=== PATIENT | female | born 1980 ===

== ENCOUNTER 2016-09-20 20:08 | Emergency (ER) | payer SELFPAY ==
[2016-09-20 20:08] VITALS: BMI 26.6
--- NOTE | 2016-09-20 22:28 | ED PDOC ---
HPI: Female Pain Time Seen by Provider: 09/20/16 22:00 Chief Complaint (Nursing): Female Genitourinary Chief Complaint (Provider): VAGINAL PRUIRITS History Per: Patient (36 Y/O FEMALE HERE WITH COMPLAINT OF VAGINAL PRUIRITIS X 3 DAYS DESPITE USE OF VAGISIL. NO VAGINAL DISCHARGE/DENIES ANY DYSURIA. ) Past Medical History Reviewed: Historical Data, Nursing Documentation, Vital Signs - Medical History PMH: Hypercholesterolemia Denies: Chronic Kidney Disease - Surgical History Surgical History: Cholecystectomy - Family History Family History: States: Unknown Family Hx - Home Medications Home Medications: Ambulatory Orders Medication Instructions Recorded Oxycodone HCl/Acetaminophen 1 tab PO Q4 #10 tab 09/21/15 [Percocet 325 mg-5 mg] Miconazole Nitrate [Monistat 3] 1 each VG DAILY #1 kit 09/20/16 - Allergies Allergies/Adverse Reactions: Allergies Allergy/AdvReac Type Severity Reaction Status Date / Time No Known Allergies Allergy Verified 08/18/14 09:15 Review of Systems ROS Statement: Except As Marked, All Systems Reviewed And Found Negative Physical Exam - Reviewed Nursing Documentation Reviewed: Yes Vital Signs Reviewed: Yes - Physical Exam Appears: Positive for: Well, Non-toxic, No Acute Distress Head Exam: Positive for: ATRAUMATIC, NORMAL INSPECTION, NORMOCEPHALIC Skin: Positive for: Normal Color, Warm, DRY Eye Exam: Positive for: EOMI, Normal appearance, PERRL ENT: Positive for: Normal ENT Inspection Neck: Positive for: Normal, Painless ROM Cardiovascular/Chest: Positive for: Regular Rate, Rhythm Respiratory: Positive for: CNT, Normal Breath Sounds Gastrointestinal/Abdominal: Positive for: Normal Exam, Bowel Sounds, Soft Pelvic Exam: Positive for: External Exam Normal (NO RASH NOTED.), Other (SMALL AMOUNT OF WHITE VAGINAL DISCHARGE NOTED. ) Back: Positive for: Normal Inspection Extremity: Positive for: Normal ROM Neurologic/Psych: Positive for: Alert, Oriented - Laboratory Results Urine POC: Negative - Progress ED Course And Treament: BS: 106 Disposition - Clinical Impression Clinical Impression: Vaginal pruritus - Patient ED Disposition Is Patient to be Admitted: No - Disposition [facility] Disposition: Routine/Home Disposition Time: 22:28 Condition: FAIR Prescriptions: Miconazole Nitrate [Monistat 3] 1 each VG DAILY #1 kit Instructions: Vulvovaginal Candidiasis (ED) Print Language: TURKMEN
[2016-09-20 22:48] VITALS: BP 111/59; PULSE 72; RESP 16; TEMP 98.8; O2SAT 98
== END 2016-09-20 22:48 | disposition home or self-care (01) ==
LOC: H.ER 20:08
DX: M75.50 Bursitis of unspecified shoulder (principal); L29.8 Other pruritus

== ENCOUNTER 2017-02-17 14:17 | Emergency (ER) | payer OTHER ==
[2017-02-17 14:17] VITALS: BMI 26.6
[2017-02-17 14:28] VITALS: BP 98/65; PULSE 86; RESP 19; TEMP 98.4; O2SAT 100
[2017-02-17] MEDS ORDERED: Amoxicillin-Clav 875-125 mg Tab PO STA (15:00)
--- NOTE | 2017-02-17 15:16 | ED PDOC ---
HPI: CCC, URI, Sore Throat Time Seen by Provider: 02/17/17 14:18 Chief Complaint (Nursing): ENT Problem Chief Complaint (Provider): ear pain History Per: Patient History/Exam Limitations: no limitations Onset/Duration Of Symptoms: Days (x3-4) Current Symptoms Are (Timing): Still Present Additional Complaint(s): Feli Vazquez is a 36 year old female who presents to the emergency department with a complaint of left ear pain associated with headache and right sided facial pain/dental pain ongoing for 1 week. Denied fever, chills or swelling to face. PMD: none provided Past Medical History Reviewed: Historical Data, Nursing Documentation, Vital Signs Vital Signs: Last Vital Signs Temp 98.4 F 02/17/17 14:26 Pulse 86 02/17/17 14:26 Resp 19 02/17/17 14:26 BP 98/65 L 02/17/17 14:26 Pulse Ox 100 02/17/17 15:20 - Medical History PMH: Hypercholesterolemia Denies: Chronic Kidney Disease - Surgical History Surgical History: Cholecystectomy - Family History Family History: States: Unknown Family Hx - Social History Current smoker - smoking cessation education provided: No Alcohol: None Drugs: Denies - Home Medications Home Medications: Ambulatory Orders Medication Instructions Recorded Oxycodone HCl/Acetaminophen 1 tab PO Q4 #10 tab 09/21/15 [Percocet 325 mg-5 mg] Miconazole Nitrate [Monistat 3] 1 each VG DAILY #1 kit 09/20/16 Amoxicillin/Clavulanate [Augmentin 1 tab PO BID #14 tab 02/17/17 875 MG-125 MG] Ibuprofen [Motrin] 600 mg PO Q6 #20 tab 02/17/17 - Allergies Allergies/Adverse Reactions: Allergies Allergy/AdvReac Type Severity Reaction Status Date / Time No Known Allergies Allergy Verified 02/17/17 14:58 Review of Systems ROS Statement: Except As Marked, All Systems Reviewed And Found Negative Constitutional: Negative for: Fever, Chills ENT: Positive for: Ear Pain (left), Mouth Pain (right sided) Neurological: Positive for: Headache Physical Exam - Reviewed Nursing Documentation Reviewed: Yes Vital Signs Reviewed: Yes - Physical Exam Appears: Positive for: Well, Non-toxic, No Acute Distress Head Exam: Positive for: ATRAUMATIC, NORMAL INSPECTION, NORMOCEPHALIC Skin: Positive for: Normal Color ENT: Positive for: TM Is/Are (erythematous and bulging on left), Other ( surrounding erythema and edema in gum line of right 3rd molar). Negative for: Normal ENT Inspection Neurologic/Psych: Positive for: Alert, cheese blender II-XII, Oriented - ECG O2 Sat by Pulse Oximetry: 100 (RA) Pulse Ox Interpretation: Normal Medical Decision Making Medical Decision Making: Initial Impression: Left ear pain Initial Plan: * Augmentin 875mg PO * Motrin 600mg PO Scribe Attestation: Documented by Faviola Cain, acting as a scribe for Janet Borden Provider Scribe Attestation: All medical record entries made by the Scribe were at my direction and personally dictated by me. I have reviewed the chart and agree that the record accurately reflects my personal performance of the history, physical exam, medical decision making, and the department course for this patient. I have also personally directed, reviewed, and agree with the discharge instructions and disposition. Disposition - Clinical Impression Clinical Impression: Otitis media, Toothache - Patient ED Disposition Is Patient to be Admitted: No - Disposition Disposition: Routine/Home Disposition Time: 17:13 Condition: STABLE Prescriptions: Amoxicillin/Clavulanate [Augmentin 875 MG-125 MG] 1 tab PO BID #14 tab Ibuprofen [Motrin] 600 mg PO Q6 #20 tab Instructions: Toothache (ED), Otitis Media (ED) Forms: [employer] (Slovenian)
[2017-02-17] MEDS ORDERED: Amoxicillin-Clav 875-125 mg Tab PO ONE (15:41)
== END 2017-02-17 17:01 | disposition home or self-care (01) ==
LOC: H.ER 14:17
DX: H66.92 Otitis media, unspecified, left ear (principal); K08.89 Other specified disorders of teeth and supporting structures

== ENCOUNTER 2017-07-01 18:31 | Emergency (ER) | payer OTHER ==
[2017-07-01 18:31] VITALS: BMI 26.6
[2017-07-01 18:44] VITALS: O2SAT 99
[2017-07-01] MEDS ORDERED: Sodium Chloride 0.9% 1,000 ML IV SCH (19:15)
--- NOTE | 2017-07-01 19:20 | ED PDOC ---
HPI: General Adult Time Seen by Provider: 07/01/17 19:00 Chief Complaint (Nursing): GI Problem Chief Complaint (Provider): Dizziness History Per: Patient History/Exam Limitations: no limitations Onset/Duration Of Symptoms: Hrs Additional Complaint(s): Patient is a 36 y/o female with no significant past medical history presenting to the emergency department for dizziness and vomiting. Reports that she felt a room-spinning sensation and vomited afterwards. Also notes that she felt like she was going to pass out. Reports feeling dizziness in the past but it was never followed by episodes of vomiting or near-syncope. Denies fever, chills, abdominal pain, or other complaints. PCP: Dr. Pallavi Piedra Past Medical History Reviewed: Historical Data, Nursing Documentation, Vital Signs Vital Signs: Last Vital Signs Temp 98.5 F 07/01/17 22:06 Pulse 78 07/01/17 22:06 Resp 20 07/01/17 22:06 BP 118/78 07/01/17 22:06 Pulse Ox 99 07/01/17 22:06 - Medical History PMH: Hypercholesterolemia Denies: Chronic Kidney Disease - Surgical History Surgical History: Cholecystectomy - Family History Family History: States: Unknown Family Hx - Home Medications Home Medications: Ambulatory Orders Medication Instructions Recorded Oxycodone HCl/Acetaminophen 1 tab PO Q4 #10 tab 09/21/15 [Percocet 325 mg-5 mg] Miconazole Nitrate [Monistat 3] 1 each VG DAILY #1 kit 09/20/16 Amoxicillin/Clavulanate [Augmentin 1 tab PO BID #14 tab 02/17/17 875 MG-125 MG] Ibuprofen [Motrin] 600 mg PO Q6 #20 tab 02/17/17 Meclizine [Antivert] 1 - 2 tab PO Q6 PRN #24 tab 07/01/17 Ondansetron ODT [Zofran ODT] 4 mg PO Q8 PRN #2 odt 07/01/17 - Allergies Allergies/Adverse Reactions: Allergies Allergy/AdvReac Type Severity Reaction Status Date / Time No Known Allergies Allergy Verified 02/17/17 14:58 Review of Systems ROS Statement: Except As Marked, All Systems Reviewed And Found Negative Constitutional: Negative for: Fever, Chills Gastrointestinal: Positive for: Vomiting. Negative for: Abdominal Pain Neurological: Positive for: Dizziness Physical Exam - Reviewed Nursing Documentation Reviewed: Yes Vital Signs Reviewed: Yes - Physical Exam Appears: Positive for: Well, Non-toxic, No Acute Distress Head Exam: Positive for: ATRAUMATIC, NORMAL INSPECTION, NORMOCEPHALIC Skin: Positive for: Normal Color, Warm, Dry Eye Exam: Positive for: Normal appearance Neck: Positive for: Normal, Painless ROM, Supple Cardiovascular/Chest: Positive for: Regular Rate, Rhythm Respiratory: Negative for: Accessory Muscle Use, Respiratory Distress Gastrointestinal/Abdominal: Positive for: Normal Exam, Soft. Negative for: Tenderness Extremity: Positive for: Normal ROM. Negative for: Pedal Edema Neurologic/Psych: Positive for: Alert, Oriented (x3) - Laboratory Results Result Diagrams: 07/01/17 19:48 07/01/17 19:48 Urine POC: Negative - ECG ECG Rhythm: Positive for: Sinus Rhythm (NSR 69 BPM; NO ECTOPY; NO ACUTE CHANGES) O2 Sat by Pulse Oximetry: 99 (RA) Pulse Ox Interpretation: Normal Medical Decision Making Medical Decision Making: Time: 19:09 Initial impression: Dizziness Initial plan: EKG CMP Magnesium Stat ED Urine Dipstick ED Urine CBC Antivert 25 mg PO Reglan 10 mg IVP Normal Saline 1 L IV ~ Scribe Attestation: Documented by Salud Torres, acting as a scribe for REY Vizcarra. Provider Scribe Attestation: All medical record entries made by the Scribe were at my direction and personally dictated by me. I have reviewed the chart and agree that the record accurately reflects my personal performance of the history, physical exam, medical decision making, and the department course for this patient. I have also personally directed, reviewed, and agree with the discharge instructions and disposition. Disposition - Clinical Impression Clinical Impression: Vertigo - Patient ED Disposition Is Patient to be Admitted: No - Disposition Referrals: [facility] [Outside] Disposition: Routine/Home Disposition Time: 22:07 Condition: FAIR Prescriptions: Meclizine [Antivert] 1 - 2 tab PO Q6 PRN #24 tab PRN Reason: Dizziness Ondansetron ODT [Zofran ODT] 4 mg PO Q8 PRN #2 odt PRN Reason: Nausea/Vomiting Instructions: Vertigo (ED) Forms: [employer] (Divehi), [facility] ED School/Work Excuse Print Language: CROATIAN
[2017-07-01 19:55] LABS: BASO % 0.3 % (0.0-2.0); EOS # 0.1 K/uL (0.0-0.7); EOS % 0.6 % (0.0-4.0); LYMPH # 1.1 K/uL (1.0-4.3); LYMPH % 10.9 % (20.0-40.0); MEAN CELL VOLUME 85.3 fl (81.0-99.0); MEAN CORPUSCULAR HEMOGLOBIN 27.9 pg (27.0-31.0); MEAN CORPUSCULAR HGB CONC 32.7 g/dL (33.0-37.0); MEAN PLATELET VOLUME 8.2 fl (7.2-11.7); MONO # 0.5 K/uL (0.0-0.8); MONO % 4.4 % (0.0-10.0); NEUT # 8.8 K/uL (1.8-7.0); NEUT % 83.8 % (50.0-75.0); NRBC % 0.1 % (0.0-0.0); RBC 4.29 Mil/uL (3.80-5.20); RED CELL DISTRIBUTION WIDTH 14.3 % (11.5-14.5); WHITE BLOOD COUNT 10.5 K/uL (4.8-10.8)
[2017-07-01 20:09] LABS: ALB/GLOB RATIO 1.3 (1.0-2.1); ALBUMIN 4.5 g/dL (3.5-5.0); ALT/SGPT 46 U/L (9-52); AST/SGOT 26 U/L (14-36); BLOOD UREA NITROGEN 12 mg/dl (7-17); CALCIUM 9.2 mg/dL (8.4-10.2); GFR AFRICAN-AMERICAN > 60; GFR NON-AFRICAN AMERICAN > 60; MAGNESIUM 2.1 MG/DL (1.6-2.3)
[2017-07-01 22:07] VITALS: BP 118/78; PULSE 78; RESP 20; TEMP 98.5
--- NOTE | 2017-07-02 08:16 | CARD ---
APPROVED REPORT EKG Measurement Heart [id number] <Conclusion> Normal sinus rhythm motion artefact
== END 2017-07-01 22:07 | disposition home or self-care (01) ==
LOC: H.ER 18:31
DX: R42 Dizziness and giddiness (principal); E78.00 Pure hypercholesterolemia, unspecified
CPT/HCPCS: 80053; 81025; 83735; 85025; 93005; 96374; 99281; J2765; J7040

== ENCOUNTER 2017-08-29 19:48 | Emergency (ER) | payer SELFPAY ==
[2017-08-29 19:48] VITALS: BMI 26.6
[2017-08-29 19:55] VITALS: RESP 16; O2SAT 98
--- NOTE | 2017-08-29 20:56 | ED PDOC ---
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) History/Exam Limitations: no limitations Onset/Duration Of Symptoms: Days (x1 week) Outside of [place] travel?: No Current Symptoms Are (Timing): Intermittent Episodes Severity: Mild Pain Scale Rating Of: 4 Location Of Pain/Discomfort: Suprapubic Quality Of Discomfort: Sharp, Pressure Associated Symptoms: denies: Fever, Nausea, Vomiting, Diarrhea, Loss Of Appetite , Urinary Symptoms Exacerbating Factors: None Last Bowel Movement: Today Additional Complaint(s): 37 year old female with a past medical history of cholecystectomy, who presents to the ED complaining of intermittent suprapubic abdominal pain x1 week. Patient denies radiation of abdominal pain and describes pain as sharp and sometimes aching. Patient confirms a history of UTI in the past, but denies any UTI symptoms at this time, including dysuria, urgency, frequency, or hematuria. Denies taking any medication for her symptoms and denies any pattern or relieving factors of her symptoms. Also denies fever, vaginal pain, vaginal itching, vaginal discharge, history of STDs, chest pain, chills, rash, cough, SOB, flank pain, back pain, nausea, vomiting, or diarrhea. LMP 08/26/2017. Patient denies any new sexual partners. PMD: [facility] Past Medical History Reviewed: Historical Data, Nursing Documentation, Vital Signs Vital Signs: Last Vital Signs Temp 97.8 F 08/30/17 00:36 Pulse 82 08/30/17 00:36 Resp 16 08/30/17 00:36 BP 110/68 08/30/17 00:36 Pulse Ox 98 08/30/17 00:36 - Medical History PMH: Hypercholesterolemia Denies: Chronic Kidney Disease Other PMH: UTI - Surgical History Surgical History: Cholecystectomy (5 years ago) - Family History Family History: States: Unknown Family Hx - Social History Current smoker - smoking cessation education provided: No Alcohol: None Drugs: Denies - Home Medications Home Medications: Ambulatory Orders Medication Instructions Recorded Oxycodone HCl/Acetaminophen 1 tab PO Q4 #10 tab 09/21/15 [Percocet 325 mg-5 mg] Miconazole Nitrate [Monistat 3] 1 each VG DAILY #1 kit 09/20/16 Amoxicillin/Clavulanate [Augmentin 1 tab PO BID #14 tab 02/17/17 875 MG-125 MG] Ibuprofen [Motrin] 600 mg PO Q6 #20 tab 02/17/17 Meclizine [Antivert] 1 - 2 tab PO Q6 PRN #24 tab 07/01/17 Ondansetron ODT [Zofran ODT] 4 mg PO Q8 PRN #2 odt 07/01/17 Ibuprofen [Motrin Tab] 600 mg PO Q6 PRN #20 tab 08/29/17 - Allergies Allergies/Adverse Reactions: Allergies Allergy/AdvReac Type Severity Reaction Status Date / Time No Known Allergies Allergy Verified 08/29/17 19:52 Review of Systems ROS Statement: Except As Marked, All Systems Reviewed And Found Negative Constitutional: Negative for: Fever, Chills Cardiovascular: Negative for: Chest Pain Respiratory: Negative for: Cough, Shortness of Breath Gastrointestinal: Positive for: Abdominal Pain. Negative for: Nausea, Vomiting , Diarrhea Genitourinary Female: Negative for: Dysuria, Frequency, Incontinence, Hematuria , Vaginal Discharge, Vaginal Bleeding Skin: Negative for: Rash Physical Exam - Reviewed Nursing Documentation Reviewed: Yes Vital Signs Reviewed: Yes - Physical Exam Appears: Positive for: Well, Non-toxic, No Acute Distress Head Exam: Positive for: ATRAUMATIC, NORMOCEPHALIC Skin: Positive for: Normal Color, Warm, Dry. Negative for: Rash Eye Exam: Positive for: EOMI, PERRL Neck: Positive for: Painless ROM, Supple Cardiovascular/Chest: Positive for: Regular Rate, Rhythm. Negative for: Murmur , Bradycardia, Tachycardia Respiratory: Positive for: Normal Breath Sounds. Negative for: Decreased Breath Sounds, Accessory Muscle Use, Respiratory Distress Gastrointestinal/Abdominal: Positive for: Bowel Sounds (active x4), Soft, Tenderness (mild suprapubic; otherwise RLQ, LLQ, RUQ, LUQ nontender.). Negative for: Organomegaly, Mass, Distended, Guarding, Rebound Back: Positive for: Normal Inspection. Negative for: L CVA Tenderness, R CVA Tenderness, Vertebral Tenderness Extremity: Positive for: Normal ROM. Negative for: Calf Tenderness, Deformity Neurologic/Psych: Positive for: Alert, Oriented (x3), Gait (steady). Negative for: Motor/Sensory Deficits - Laboratory Results Result Diagrams: 08/29/17 21:24 08/29/17 21:24 Urine dip results: Negative for: Leukocyte Esterase, Blood, Nitrate, Ketones, Glucose, Bilirubin, Protein - ECG O2 Sat by Pulse Oximetry: 98 (RA) Pulse Ox Interpretation: Normal Medical Decision Making Medical Decision Making: Time: 20:30 Initial Impression: Suprapubic abdominal pain Initial Plan: --CMP --Urine --CBC w/ differential --Toradol 30 mg IVP --Urine culture --IV Insertion --Urinalysis --Reevaluation 2130 Bloodwork reviewed and grossly normal, patient pending urinalysis results. Beta qual negative. Pain improved s/p Toradol. On exam, patient remains AAOx3, in no acute distress. Lungs clear to auscultation, cardiac RRR, abdomen soft, non- distended, repeat neuro exam shows no focal findings. 2210 Urinalysis reviewed. Due to persistent pain, transvaginal ultrasound ordered. 2300 Patient in U/S. 2340 U/S reviewed and results below. EXAM: US Pelvis, Transvaginal CLINICAL HISTORY: 37 years old, female; Pelvic pain x1week TECHNIQUE: Real-time transvaginal pelvic ultrasound (complete) with image documentation. Transvaginal imaging was used for better evaluation of the endometrium and adnexa. COMPARISON: US - TRANSVAGINAL 2015-06-02 14:32 FINDINGS: Uterus/cervix: Unremarkable measuring 6.6 x 3.7 x 5.6 cm. The endometrial cavity is mildly prominent measuring 9 mm, which should be correlated with this patient's menstrual history. No myometrial mass. Right ovary: Unremarkable measuring 2.3 x 1.4 x 1.5 cm with small follicles. No mass. Normal blood flow. Left ovary: Unremarkable measuring 2.5 x 1.7 x 2.2 cm with small follicles. No mass. Normal blood flow. Free fluid: No free fluid. Bladder: Empty bladder which cannot be evaluated with this probe. IMPRESSION: No evidence of an acute pelvic abnormality. No evidence of ovarian torsion. Thank you for allowing us to participate in the care of your patient. Dictated and Authenticated by: Perri Saucedo MD 08/29/2017 11:41 PM Eastern Time ([place] & [place]) 2350 Diagnostic results d/w the patient in great detail. Diagnosis of acute pelvic d/ w the patient. Based on history, exam and diagnostic results, plan will be for outpatient follow up. 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 Advised to take medication as prescribed. Return to the emergency room at any time for any new or worsening symptoms. Patient states she fully agrees with and understands discharge instructions. States that she agrees with the plan and disposition. Verbalized and repeated discharge instructions and plan. I have given the patient opportunity to ask any additional questions. Scribe Attestation: Documented by Ruperto Rosado, acting as a scribe for Angelia Faye PA-C. Provider Scribe Attestation: All medical record entries made by the Scribe were at my direction and personally dictated by me. I have reviewed the chart and agree that the record accurately reflects my personal performance of the history, physical exam, medical decision making, and the department course for this patient. I have also personally directed, reviewed, and agree with the discharge instructions and disposition. Disposition - Clinical Impression Clinical Impression: Pelvic pain, Suprapubic discomfort - Patient ED Disposition Is Patient to be Admitted: No Counseled Patient/Family Regarding: Studies Performed, Diagnosis, Need For Followup, Rx Given - Disposition Referrals: [facility] [Outside] Disposition: Routine/Home Disposition Time: 23:53 Condition: STABLE Prescriptions: Ibuprofen [Motrin Tab] 600 mg PO Q6 PRN #20 tab PRN Reason: Pain, Moderate (4-7) Instructions: Acute Pelvic Pain Forms: [employer] (Indonesian) Print Language: BELIZEAN - POA Present On Arrival: None Results - Lab Results Lab Results: 08/29/17 08/29/17 08/29/17 21:24 21:24 21:24 WBC 10.4 RBC 4.25 Hgb 12.0 Hct 36.6 MCV 86.2 MCH 28.4 MCHC 32.9 L RDW 14.1 Plt Count 285 MPV 8.1 Neut % (Auto) 65.9 Lymph % (Auto) 25.8 [place] % (Auto) 6.2 Eos % (Auto) 1.7 Baso % (Auto) 0.4 Neut # (Auto) 6.8 Lymph # (Auto) 2.7 [place] # (Auto) 0.6 Eos # (Auto) 0.2 Baso # (Auto) 0.0 Sodium 144 Potassium 4.2 Chloride 99 Carbon Dioxide 29 Anion Gap 20 BUN 18 H Creatinine 0.8 Est GFR ( Amer) > 60 Est GFR (Non-Af Amer) > 60 Random Glucose 109 H Calcium 9.7 Total Bilirubin 0.3 AST 30 ALT 40 Alkaline Phosphatase 86 Total Protein 8.0 Albumin 4.4 Globulin 3.6 Albumin/Globulin Ratio 1.2 Urine Color Yellow Urine Clarity Clear Urine pH 6.0 Ur Specific [place] 1.027 Urine Protein Negative Urine Glucose (UA) Neg Urine Ketones Negative Urine Blood Negative Urine Nitrate Negative Urine Bilirubin Negative Urine Urobilinogen 0.2-1.0 Ur Leukocyte Esterase Neg Urine RBC (Auto) 3 Urine Microscopic WBC 1 Ur Squamous Epith Cells 1
[2017-08-29 21:29] LABS: BASO % 0.4 % (0.0-2.0); EOS # 0.2 K/uL (0.0-0.7); EOS % 1.7 % (0.0-4.0); LYMPH # 2.7 K/uL (1.0-4.3); LYMPH % 25.8 % (20.0-40.0); MEAN CELL VOLUME 86.2 fl (81.0-99.0); MEAN CORPUSCULAR HEMOGLOBIN 28.4 pg (27.0-31.0); MEAN CORPUSCULAR HGB CONC 32.9 g/dL (33.0-37.0); MEAN PLATELET VOLUME 8.1 fl (7.2-11.7); MONO # 0.6 K/uL (0.0-0.8); MONO % 6.2 % (0.0-10.0); NEUT # 6.8 K/uL (1.8-7.0); NEUT % 65.9 % (50.0-75.0); NRBC % 0.1 % (0.0-0.0); RBC 4.25 Mil/uL (3.80-5.20); RED CELL DISTRIBUTION WIDTH 14.1 % (11.5-14.5); WHITE BLOOD COUNT 10.4 K/uL (4.8-10.8)
[2017-08-29 21:39] LABS: ALB/GLOB RATIO 1.2 (1.0-2.1); ALBUMIN 4.4 g/dL (3.5-5.0); ALT/SGPT 40 U/L (9-52); AST/SGOT 30 U/L (14-36); BLOOD UREA NITROGEN 18 mg/dl (7-17); CALCIUM 9.7 mg/dL (8.4-10.2); GFR AFRICAN-AMERICAN > 60; GFR NON-AFRICAN AMERICAN > 60
[2017-08-29 22:09] LABS: SQUAMOUS EPITHIAL 1 /hpf (0-5); URINE BILIRUBIN NEGATIVE (NEGATIVE); URINE BLOOD NEGATIVE (NEGATIVE); URINE CLARITY CLEAR (Clear); URINE COLOR YELLOW (YELLOW); URINE GLUCOSE (UA) NEG (Normal); URINE LEUKOCYTE ESTERASE NEG Leu/uL (Negative); URINE PROTEIN NEGATIVE (NEGATIVE); URINE UROBILINOGEN 0.2-1.0 mg/dL (0.2-1.0)
--- NOTE | 2017-08-29 23:41 | US ---
EXAM: US Pelvis, Transvaginal CLINICAL HISTORY: 37 years old, female; Pain; Pelvic pain; Additional info: Pelvic pain x1week TECHNIQUE: Real-time transvaginal pelvic ultrasound (complete) with image documentation. Transvaginal imaging was used for better evaluation of the endometrium and adnexa. COMPARISON: US - TRANSVAGINAL 2015-06-02 14:32 FINDINGS: Uterus/cervix: Unremarkable measuring 6.6 x 3.7 x 5.6 cm. The endometrial cavity is mildly prominent measuring 9 mm, which should be correlated with this patient's menstrual history. No myometrial mass. Right ovary: Unremarkable measuring 2.3 x 1.4 x 1.5 cm with small follicles. No mass. Normal blood flow. Left ovary: Unremarkable measuring 2.5 x 1.7 x 2.2 cm with small follicles. No mass. Normal blood flow. Free fluid: No free fluid. Bladder: Empty bladder which cannot be evaluated with this probe. IMPRESSION: No evidence of an acute pelvic abnormality. No evidence of ovarian torsion.
[2017-08-30 00:37] VITALS: BP 110/68; PULSE 82; TEMP 97.8
== END 2017-08-30 00:37 | disposition home or self-care (01) ==
LOC: H.ER 19:48
DX: R10.2 Pelvic and perineal pain (principal); E78.00 Pure hypercholesterolemia, unspecified
CPT/HCPCS: 76830; 80053; 81003; 81025; 85025; 87086; 96374; 99283; J1885

== ENCOUNTER 2017-09-22 20:00 | Emergency (ER) | payer OTHER, SELFPAY ==
[2017-09-22 20:00] VITALS: BMI 26.6
[2017-09-22 20:19] VITALS: BP 123/82; PULSE 79; RESP 18; TEMP 97.8; O2SAT 99
--- NOTE | 2017-09-22 20:49 | ED PDOC ---
HPI: Chest Pain Time Seen by Provider: 09/22/17 20:41 Chief Complaint (Nursing): Chest Pain History Per: Patient Onset/Duration Of Symptoms: Days (2) Current Symptoms Are (Timing): Intermittent Episodes Severity: Mild Pain Scale Rating Of: 2 Quality: Sharp Associated Symptoms: denies: Dyspnea Exacerbating Factors: Deep Breathing Additional Complaint(s): Chest pain x 2 days. Worse on inspiration. Denies cough fever or sob. Denies calf pain or swelling Past Medical History Vital Signs: Last Vital Signs Temp 97.8 F 09/22/17 20:14 Pulse 79 09/22/17 20:14 Resp 18 09/22/17 20:14 BP 123/82 09/22/17 20:14 Pulse Ox 99 09/22/17 20:49 - Medical History PMH: Hypercholesterolemia Denies: Chronic Kidney Disease - Surgical History Surgical History: Cholecystectomy (5 years ago) - Family History Family History: States: Unknown Family Hx - Home Medications Home Medications: Ambulatory Orders Medication Instructions Recorded Oxycodone HCl/Acetaminophen 1 tab PO Q4 #10 tab 09/21/15 [Percocet 325 mg-5 mg] Miconazole Nitrate [Monistat 3] 1 each VG DAILY #1 kit 09/20/16 Amoxicillin/Clavulanate [Augmentin 1 tab PO BID #14 tab 02/17/17 875 MG-125 MG] Ibuprofen [Motrin] 600 mg PO Q6 #20 tab 02/17/17 Meclizine [Antivert] 1 - 2 tab PO Q6 PRN #24 tab 07/01/17 Ondansetron ODT [Zofran ODT] 4 mg PO Q8 PRN #2 odt 07/01/17 Ibuprofen [Motrin Tab] 600 mg PO Q6 PRN #20 tab 08/29/17 Naproxen [Naprosyn] 500 mg PO Q12H #20 tab 09/22/17 - Allergies Allergies/Adverse Reactions: Allergies Allergy/AdvReac Type Severity Reaction Status Date / Time No Known Allergies Allergy Verified 09/22/17 20:14 Review of Systems ROS Statement: Except As Marked, All Systems Reviewed And Found Negative Cardiovascular: Positive for: Chest Pain Respiratory: Positive for: Pleuritic Pain Physical Exam - Reviewed Nursing Documentation Reviewed: Yes Vital Signs Reviewed: Yes - Physical Exam Appears: Positive for: Non-toxic, No Acute Distress Head Exam: Positive for: ATRAUMATIC, NORMAL INSPECTION, NORMOCEPHALIC Skin: Positive for: Normal Color, Warm, DRY Eye Exam: Positive for: EOMI, Normal appearance, PERRL ENT: Positive for: Normal ENT Inspection Neck: Positive for: Normal, Painless ROM Cardiovascular/Chest: Positive for: Regular Rate, Rhythm. Negative for: Chest Non Tender (Ant chest wall tenderness reproducible) Respiratory: Positive for: CNT, Normal Breath Sounds Gastrointestinal/Abdominal: Positive for: Normal Exam, Bowel Sounds, Soft Back: Positive for: Normal Inspection Extremity: Positive for: Normal ROM. Negative for: Swelling Neurologic/Psych: Positive for: Alert, Oriented - ECG O2 Sat by Pulse Oximetry: 99 Disposition - Clinical Impression Clinical Impression: Chest wall pain - Patient ED Disposition Is Patient to be Admitted: No Counseled Patient/Family Regarding: Studies Performed, Diagnosis, Need For Followup, Rx Given - Disposition Referrals: [facility] [Outside] Disposition: Routine/Home Disposition Time: 21:19 Condition: FAIR Prescriptions: Naproxen [Naprosyn] 500 mg PO Q12H #20 tab Instructions: Costochondritis Forms: [employer] (Urdu) Print Language: KAZAKH
--- NOTE | 2017-09-23 09:38 | RAD ---
CHEST RADIOGRAPHS Frontal lateral views the chest been submitted for evaluation of chest pain. Comparison a prior chest dated 05/22/2014. No acute infiltrate, pleural effusion or pneumothorax identified bilaterally. Cardiomediastinal silhouette appears unremarkable including pulmonary vascular pattern. IMPRESSION: No interval acute cardiopulmonary disease appreciable.
--- NOTE | 2017-09-24 11:53 | CARD ---
APPROVED REPORT EKG Measurement Heart [id number] <Conclusion> Normal sinus rhythm Normal ECG
== END 2017-09-22 21:40 | disposition home or self-care (01) ==
LOC: H.ER 20:00
DX: R07.89 Other chest pain (principal)

== ENCOUNTER 2017-11-18 20:41 | Emergency (ER) | payer OTHER, SELFPAY ==
[2017-11-18 20:41] VITALS: BMI 26.6
--- NOTE | 2017-11-18 21:15 | ED PDOC ---
HPI: Abdomen Time Seen by Provider: 11/18/17 21:03 Chief Complaint (Nursing): Abdominal Pain Chief Complaint (Provider): : pelvic pain History Per: Patient History/Exam Limitations: no limitations Onset/Duration Of Symptoms: Days (5) Location Of Pain/Discomfort: RLQ, Suprapubic Additional History Per: Patient Additional Complaint(s): 37 y/o female presents with pain to lower abdomen x 5 days. Patient had a + test at home. Denies fever, nausea/vomiting, chest pain, changes in bowel movements, urinary symptoms, vaginal bleeding/discharge. No care thus far. Last Menstral Period: 09/23/17 : 5 Para: 4 Miscarriage: 0 Past Medical History Reviewed: Historical Data, Nursing Documentation, Vital Signs Vital Signs: Last Vital Signs Temp 97.8 F 11/18/17 20:47 Pulse 87 11/18/17 20:47 Resp 18 11/18/17 20:47 BP 126/82 11/18/17 20:47 Pulse Ox 100 11/18/17 21:15 - Medical History PMH: Hypercholesterolemia Denies: Chronic Kidney Disease - Surgical History Surgical History: Cholecystectomy (5 years ago) - Family History Family History: States: Unknown Family Hx - Home Medications Home Medications: Ambulatory Orders Medication Instructions Recorded Oxycodone HCl/Acetaminophen 1 tab PO Q4 #10 tab 09/21/15 [Percocet 325 mg-5 mg] Miconazole Nitrate [Monistat 3] 1 each VG DAILY #1 kit 09/20/16 Amoxicillin/Clavulanate [Augmentin 1 tab PO BID #14 tab 02/17/17 875 MG-125 MG] Ibuprofen [Motrin] 600 mg PO Q6 #20 tab 02/17/17 Meclizine [Antivert] 1 - 2 tab PO Q6 PRN #24 tab 07/01/17 Ondansetron ODT [Zofran ODT] 4 mg PO Q8 PRN #2 odt 07/01/17 Ibuprofen [Motrin Tab] 600 mg PO Q6 PRN #20 tab 08/29/17 Naproxen [Naprosyn] 500 mg PO Q12H #20 tab 09/22/17 - Allergies Allergies/Adverse Reactions: Allergies Allergy/AdvReac Type Severity Reaction Status Date / Time No Known Allergies Allergy Verified 09/22/17 20:14 Review of Systems ROS Statement: Except As Marked, All Systems Reviewed And Found Negative Genitourinary Female: Positive for: Pelvic Pain Physical Exam - Reviewed Nursing Documentation Reviewed: Yes Vital Signs Reviewed: Yes - Physical Exam Appears: Positive for: Well, Non-toxic, No Acute Distress Head Exam: Positive for: ATRAUMATIC, NORMAL INSPECTION, NORMOCEPHALIC Skin: Positive for: Normal Color Eye Exam: Positive for: Normal appearance ENT: Positive for: Normal ENT Inspection Cardiovascular/Chest: Positive for: Regular Rate, Rhythm Respiratory: Positive for: Normal Breath Sounds Gastrointestinal/Abdominal: Positive for: Bowel Sounds, Soft, Tenderness ( diffuse lower discomfort to palpation). Negative for: Distended, Rebound Back: Positive for: Normal Inspection Extremity: Positive for: Normal ROM Neurologic/Psych: Positive for: Alert, Oriented - Laboratory Results Result Diagrams: 11/18/17 21:44 11/18/17 21:44 - ECG O2 Sat by Pulse Oximetry: 100 - Progress ED Course And Treament: labs, urine, OB TV u/s EXAM: US , Transvaginal EXAM DATE/TIME: 11/18/2017 9:13 PM CLINICAL HISTORY: 37 years old, female; Pain; Other: Pelvic pain; Gestational age or lmp: Unknown ; ; Additional info: ; Pelvic pain TECHNIQUE: Real-time transvaginal obstetrical ultrasound of the maternal pelvis and a first trimester with image documentation. Transvaginal imaging was used for better evaluation of the fetus and adnexa. COMPARISON: US - TRANSVAGINAL 2015-06-02 14:32 FINDINGS: The uterus measures 8 x 5 x 7 cm. The cervix measures 3.4 cm. There is an intrauterine gestational sac containing a yolk sac. No pole or heart rate identified at this time. Gestational sac measurements correspond to a gestational age of 5 weeks 0 days. There is a small 1.9 x 0.7 x 1.3 cm hypoechoic structure adjacent to the gestational sac likely representing a subchorionic bleed. Followup is recommended. The maternal ovaries appear normal.Color flow and doppler vascular waveforms were demonstrated to both ovaries. IMPRESSION: Intrauterine gestational sac containing yolk sac however no pole or heart rate at this time. Recommend followup beta-hCG levels and followup ultrasound. Subchorionic bleed. Patient educated on findings, discharged with instructions to follow up with Ob/ Hydrology Professor 2-3 days. Advised vitamins Return precautions given Disposition - Clinical Impression Clinical Impression: Abdominal pain affecting , Subchorionic bleed - Patient ED Disposition Is Patient to be Admitted: No Counseled Patient/Family Regarding: Studies Performed, Diagnosis, Need For Followup - Disposition Referrals: [facility] [Outside] Disposition: Routine/Home Disposition Time: : Condition: IMPROVED Instructions: Threatened Miscarriage, Round Ligament Pain Print Language: BENINESE
[2017-11-18 21:47] LABS: BASO % 0.2 % (0.0-2.0); EOS # 0.1 K/uL (0.0-0.7); HEMOGLOBIN 11.9 g/dL (12.0-16.0); LYMPH # 1.5 K/uL (1.0-4.3); LYMPH % 15.2 % (20.0-40.0); MEAN CELL VOLUME 85.7 fl (81.0-99.0); MEAN CORPUSCULAR HEMOGLOBIN 28.5 pg (27.0-31.0); MEAN CORPUSCULAR HGB CONC 33.3 g/dL (33.0-37.0); MEAN PLATELET VOLUME 7.9 fl (7.2-11.7); MONO # 0.6 K/uL (0.0-0.8); MONO % 6.6 % (0.0-10.0); NEUT # 7.4 K/uL (1.8-7.0); RBC 4.18 Mil/uL (3.80-5.20); RED CELL DISTRIBUTION WIDTH 14.3 % (11.5-14.5); WHITE BLOOD COUNT 9.6 K/uL (4.8-10.8)
[2017-11-18 22:04] LABS: ALB/GLOB RATIO 1.2 (1.0-2.1); ALBUMIN 4.3 g/dL (3.5-5.0); ALT/SGPT 43 U/L (9-52); AST/SGOT 23 U/L (14-36); BLOOD UREA NITROGEN 14 mg/dl (7-17); CALCIUM 9.6 mg/dL (8.4-10.2); GFR AFRICAN-AMERICAN > 60; GFR NON-AFRICAN AMERICAN > 60
--- NOTE | 2017-11-19 01:23 | US ---
EXAM: US , Transvaginal EXAM DATE/TIME: 11/18/2017 9:13 PM CLINICAL HISTORY: 37 years old, female; Pain; Other: Pelvic pain; Gestational age or lmp: Unknown; ; Additional info: ; Pelvic pain TECHNIQUE: Real-time transvaginal obstetrical ultrasound of the maternal pelvis and a first trimester with image documentation. Transvaginal imaging was used for better evaluation of the fetus and adnexa. COMPARISON: US - TRANSVAGINAL 2015-06-02 14:32 FINDINGS: The uterus measures 8 x 5 x 7 cm. The cervix measures 3.4 cm. There is an intrauterine gestational sac containing a yolk sac. No pole or heart rate identified at this time. Gestational sac measurements correspond to a gestational age of 5 weeks 0 days. There is a small 1.9 x 0.7 x 1.3 cm hypoechoic structure adjacent to the gestational sac likely representing a subchorionic bleed. Followup is recommended. The maternal ovaries appear normal.Color flow and doppler vascular waveforms were demonstrated to both ovaries. IMPRESSION: Intrauterine gestational sac containing yolk sac however no pole or heart rate at this time. Recommend followup beta-hCG levels and followup ultrasound. Subchorionic bleed.
[2017-11-19 01:51] VITALS: BP 109/66; PULSE 80; RESP 16; TEMP 98; O2SAT 98
== END 2017-11-19 01:51 | disposition home or self-care (01) ==
LOC: H.ER 20:41
DX: O20.0 Threatened abortion (principal); O26.899 Other specified pregnancy related conditions, unspecified trimester; E78.00 Pure hypercholesterolemia, unspecified

== ENCOUNTER 2017-11-25 11:45 | Emergency (ER) | payer SELFPAY ==
[2017-11-25 11:48] VITALS: BMI 26.2
[2017-11-25 11:50] VITALS: TEMP 98.3
--- NOTE | 2017-11-25 12:15 | ED PDOC ---
HPI: Female Pain Time Seen by Provider: 11/25/17 12:01 Chief Complaint (Nursing): Abdominal Pain History Per: Patient Onset/Duration Of Symptoms: Days (10) Current Symptoms Are (Timing): Still Present Severity: Mild Pain Scale Rating Of: 3 Quality Of Discomfort: Cramping Associated Symptoms: Urinary Symptoms. denies: Fever, Nausea, Vomiting, Diarrhea Additional Complaint(s): Crampy lower abd pain x 10 days. No vaginal bleeding. Has urinary frequency. Pain radiates to back Abnormal Vaginal Bleeding: No Past Medical History Vital Signs: Last Vital Signs Temp 98.3 F 11/25/17 11:49 Pulse 81 11/25/17 11:49 Resp 20 11/25/17 11:49 BP 101/66 11/25/17 11:49 Pulse Ox 98 11/25/17 12:03 - Medical History PMH: Hypercholesterolemia Denies: Chronic Kidney Disease - Surgical History Surgical History: Cholecystectomy (5 years ago) - Family History Family History: States: Unknown Family Hx - Home Medications Home Medications: Ambulatory Orders Medication Instructions Recorded Oxycodone HCl/Acetaminophen 1 tab PO Q4 #10 tab 09/21/15 [Percocet 325 mg-5 mg] Miconazole Nitrate [Monistat 3] 1 each VG DAILY #1 kit 09/20/16 Amoxicillin/Clavulanate [Augmentin 1 tab PO BID #14 tab 02/17/17 875 MG-125 MG] Ibuprofen [Motrin] 600 mg PO Q6 #20 tab 02/17/17 Meclizine [Antivert] 1 - 2 tab PO Q6 PRN #24 tab 07/01/17 Ondansetron ODT [Zofran ODT] 4 mg PO Q8 PRN #2 odt 07/01/17 Ibuprofen [Motrin Tab] 600 mg PO Q6 PRN #20 tab 08/29/17 Naproxen [Naprosyn] 500 mg PO Q12H #20 tab 09/22/17 - Allergies Allergies/Adverse Reactions: Allergies Allergy/AdvReac Type Severity Reaction Status Date / Time No Known Allergies Allergy Verified 11/25/17 12:03 Review of Systems Constitutional: Negative for: Fever Gastrointestinal: Positive for: Abdominal Pain Genitourinary Female: Positive for: Frequency. Negative for: Vaginal Bleeding Musculoskeletal: Positive for: Back Pain Physical Exam - Physical Exam Appears: Positive for: Non-toxic, No Acute Distress Skin: Positive for: Normal Color, Warm, DRY Cardiovascular/Chest: Positive for: Regular Rate, Rhythm Respiratory: Positive for: CNT, Normal Breath Sounds Gastrointestinal/Abdominal: Positive for: Bowel Sounds, Soft, Tenderness ( suprapubic) Back: Negative for: L CVA Tenderness, R CVA Tenderness - ECG O2 Sat by Pulse Oximetry: 98 Disposition - Clinical Impression Clinical Impression: Threatened miscarriage - Patient ED Disposition Is Patient to be Admitted: No Counseled Patient/Family Regarding: Studies Performed, Diagnosis, Need For Followup - Disposition Referrals: [facility] [Outside] Disposition: Routine/Home Disposition Time: 16:42 Condition: FAIR Instructions: Threatened Miscarriage, Round Ligament Pain Forms: [facility] (Kyrgyz) Print Language: BELARUSIAN
--- NOTE | 2017-11-25 16:16 | US ---
HISTORY: r/o ectopic ; last menstrual period is not definitive. COMPARISON: None available. TECHNIQUE: Transvaginal pelvic ultrasound was performed with longitudinal and transverse images submitted for interpretation. FINDINGS: UTERUS: Measures 7.6 x 6.3 x 6.0 cm. Uterus is anteverted with mildly inhomogeneous but nonfocal myometrium. No fibroid or other mass lesion seen. ENDOMETRIUM: A gestational sac is identified within the endometrial cavity with a mean sac diameter measuring 1.36 cm corresponding to ultrasonic age of 5 weeks 4 days. Yolk sac and pole are identified within the gestational sac with mean crown-rump length measurement of 0.52 cm corresponding to 6 weeks 2 days. cardiac activity measures 122 beats per minute Imaging is somewhat distorted due to slight retroflexion of the mid to upper uterine fundus generating artifacts. The clinical significance of discrepancy of gestational sac and pole is unclear given this finding as a few mm may distort the comparison significantly. Small subchorionic hemorrhage is not excluded antral laterally toward the left with a small focus seen toward the right as well. Trace fluid is present at the cul-de-sac. CERVIX: Cervix measures 4.0 cm with a closed internal os. No discrete cervical lesion appreciable. RIGHT OVARY: Measures 3.2 x 2.3 x 2.2 cm. No solid mass. Normal flow. LEFT OVARY: Measures 2.1 x 1.2 x 1.3 cm. No solid mass. Normal flow. FREE FLUID: No significant free fluid noted. OTHER FINDINGS: None. IMPRESSION: 1. A single viable intrauterine gestation is identified in the 1st trimester with average ultrasonic age of 6 weeks 2 days based on mean crown-rump length measurement is somewhat greater than 5 weeks 4 days suggested by mean sac diameter. Usually the mean sac diameter estimate is greater than the estimate based on CRL and clinical correlation and follow-up ultrasonography is recommended. Limited subchorionic hemorrhage suggested. 2. No evidence of ovarian torsion in the bilateral adnexal compartments or definite ectopic gestation.
[2017-11-25 16:54] VITALS: BP 108/70; PULSE 80; RESP 18; O2SAT 99
== END 2017-11-25 16:54 | disposition home or self-care (01) ==
LOC: H.ER 11:45
DX: O20.0 Threatened abortion (principal); E78.00 Pure hypercholesterolemia, unspecified; Z3A.01 Less than 8 weeks gestation of pregnancy

== ENCOUNTER 2018-04-02 20:38 | Emergency (ER) | payer SELFPAY ==
[2018-04-02 20:38] VITALS: BMI 26.2
[2018-04-02 21:09] VITALS: BP 114/74; PULSE 104; RESP 16; TEMP 98.2
[2018-04-02 21:36] VITALS: O2SAT 100
--- NOTE | 2018-04-02 22:10 | ED PDOC ---
HPI: Headache History Per: Patient, Family () Additional Complaint(s): Pt. states for the past 3 days she's had a b/l frontal headache greatest on the R side. States she was advised by Dr. Burk 3-4 weeks ago to take Advil for her lower back pain which she in turn took for her headache with temporary relief. States she's had the same headaches in the past when she was not and was evalauted for it and had a CT of her head which was negative. Further reports that she is currently 24 weeks . Denies vaginal bleeding, abdominal pain, head injury, fever, nasal congestion, visual changes, sudden onset of headache. <Alin Bond E - Last Filed: 04/04/18 11:35> <Ruth Malik - Last Filed: 04/04/18 19:39> Time Seen by Provider: 04/02/18 21:22 Chief Complaint (Nursing): Headache Supervising Attending Note - Attestation: I have personally seen and examined this patient.: No I have reviewed all pertinent clinical information: Yes <Ruth Malik - Last Filed: 04/04/18 19:39> Past Medical History Reviewed: Historical Data, Nursing Documentation, Vital Signs Vital Signs: Last Vital Signs Temp 98.2 F 04/02/18 21:06 Pulse 104 H 04/02/18 21:06 Resp 16 04/02/18 21:06 BP 114/74 04/02/18 21:06 Pulse Ox 100 04/02/18 21:06 - Medical History PMH: Hypercholesterolemia Denies: Chronic Kidney Disease - Surgical History Surgical History: Cholecystectomy (5 years ago) - Family History Family History: States: No Known Family Hx - Immunization History Hx Tetanus Toxoid Vaccination: No Hx Influenza Vaccination: No Hx Pneumococcal Vaccination: No <Alin Bond - Last Filed: 04/04/18 11:35> Vital Signs: Last Vital Signs Temp 98.2 F 04/02/18 21:06 Pulse 104 H 04/02/18 21:06 Resp 16 04/02/18 21:06 BP 114/74 04/02/18 21:06 Pulse Ox 100 04/04/18 11:50 <Ruth Malik - Last Filed: 04/04/18 19:39> - Home Medications Home Medications: Ambulatory Orders Medication Instructions Recorded Prenat Vit 17/Iron/Folic/Om3,6 1 each PO DAILY 11/30/17 [Elite-Ob 400 Capsule] RX: Acetaminophen [Tylenol 325mg 2 tab PO Q4H #30 tab 11/30/17 tab] - Allergies Allergies/Adverse Reactions: Allergies Allergy/AdvReac Type Severity Reaction Status Date / Time No Known Allergies Allergy Verified 11/30/17 20:03 Review of Systems ROS Statement: Except As Marked, All Systems Reviewed And Found Negative Neurological: Positive for: Headache <Alin Bond - Last Filed: 04/04/18 11:35> Physical Exam - Physical Exam Appears: Positive for: Well, Non-toxic, No Acute Distress Head Exam: Positive for: ATRAUMATIC, NORMAL INSPECTION, NORMOCEPHALIC Skin: Positive for: Normal Color, Warm. Negative for: Rash Eye Exam: Positive for: EOMI, Normal appearance, PERRL ENT: Positive for: Normal ENT Inspection Cardiovascular/Chest: Positive for: Regular Rate, Rhythm Respiratory: Positive for: CNT, Normal Breath Sounds Gastrointestinal/Abdominal: Positive for: Normal Exam, Soft, Other (gravid). Negative for: Tenderness Back: Positive for: Normal Inspection Neurologic/Psych: Positive for: Alert, Oriented (x3). Negative for: Aphasia, Facial Droop <Alin Bond - Last Filed: 04/04/18 11:35> - ECG O2 Sat by Pulse Oximetry: 100 - Progress ED Course And Treament: Tylenol 975mg PO ordered. Repeat HR: 93 as per RN. On re-evaluation, pt. reports good relief of headache. <Alin Bond - Last Filed: 04/04/18 11:35> Disposition - Patient ED Disposition Is Patient to be Admitted: No - Disposition Disposition: Routine/Home Disposition Time: 22:10 <Alin Bond - Last Filed: 04/04/18 11:35> <Ruth Malik - Last Filed: 04/04/18 19:39> - Clinical Impression Clinical Impression: Acute headache - Disposition Referrals: Manny Burk MD [Staff Provider] - Condition: IMPROVED Additional Instructions: DERIAN LUEVANO, thank you for letting us take care of you today. Your provider was Ruth Malik MD and you were treated for HEADACHE, 24 WKS PREG. The emergency medical care you received today was directed at your acute sy mptoms. If you were prescribed any medication, please fill it and take as directed. It may take several days for your symptoms to resolve. Return to the Emergency Department if your symptoms worsen, do not improve, or if you have any other problems. Please contact your doctor or call one of the physicians/clinics you have been referred to that are listed on the Patient Visit Information form that is included in your discharge packet. Bring any paperwork you were given at discharge with you along with any medications you are taking to your follow up visit. Our treatment cannot replace ongoing medical care by a primary care provider outside of the emergency department. Thank you for allowing the [facility] team to be part of your care today. If you had an X-Ray or CT scan: A Radiologist will review the ED reading if any change in treatment is needed we will contact you. If you had a blood, urine, or wound culture: It will take several days for the results, if any change in treatment is needed we will contact you. If you had an STI test: It will take 48 hours for the results. Please call after 1 week if you have not heard back. Instructions: Acute Headache (ED) Forms: [facility] (Amharic) Print Language: SERBIAN
== END 2018-04-02 22:30 | disposition home or self-care (01) ==
LOC: H.ER 20:38
DX: R51 Headache (principal); O26.892 Other specified pregnancy related conditions, second trimester; Z3A.24 24 weeks gestation of pregnancy

== ENCOUNTER 2018-06-12 11:00 | Emergency (ER) | payer SELFPAY ==
[2018-06-12 11:16] VITALS: BMI 27.3
--- NOTE | 2018-06-12 14:38 | US ---
Date of service: 06/12/2018 PROCEDURE: Limited obstetrical ultrasound examination/biophysical profile HISTORY: GDM COMPARISON: Not available TECHNIQUE: Transabdominal FINDINGS: Ultrasound examination demonstrates a single live intrauterine gestation in cephalic presentation. The heart rate is 147 beats per 2nd. A normal quantity of amniotic fluid is visualized. The ADRIEN is 17.15 cm. The cervix is closed and measures 3.9 cm in length. An anterior placenta is identified. There is no evidence of placenta previa. anatomy was not assessed. biometry was not performed. A limited biophysical profile examination yields a score of 8 out of 8. IMPRESSION: Single live intrauterine gestation in cephalic presentation. Biophysical profile score 8 out of 8.
--- NOTE | 2018-06-12 15:42 | OBHP ---
Datetime: 06/12/2018 11:57 IP Adm Impression: , intrauterine IP Admit Plan: Observation/Evaluation Admit Comment, IP Provider: 37 YO with IUP at EGA 35 Wks by first trimester US and JEN 11/09 with h/o GDM, who presents today for f/u evaluation NST/BPP Growth scan US. Patient today denies any VB, Uterine contx, LOF, also denies VAZ, blurry vision, dizziness, CP, SOB, N/V, dysuria, f ever or other acute medical complaint at this time of encounter. Patient reports +FM. ROS: unremarkable, except as per HPI provider: Dr Franklin. W f/u with MFM Dr Wm MAGALLON: LMP 09/26/17. , patient reports x4 , h/o GDM in third and current . PMH: GDM FMH: denies SURG: Cholecystectomy ALL: NKA SOCHx: Denies ETOH/Tobacco/ drug use MEDS: PNV, Patient is on Insulin therapy (30 unit SC NPH AM, 14 units SC QHS) LABS: HIV neg 04/30, HBsAg neg, Rubella +/immune, RPR nonreactive, HbA1C 5.6, GTT 185 in december. PE GEN: NAD HEENT: NCAT RESP: CTA b/l CV: RRR, S1 S2 normal ABD: Gravid EXT: LE no edema A/P 37 YO with IUP at EGA 35 Wks by first trimester US and JEN , who presents today f or f/u evaluation of her GDM with NST/BPP Growth scan US. -Observation L _ D -Monitor VS -Monitor FHR - NST/BPP Growth scan US -D/C planning Case discussed with attending Dr Mario Gauthier MD PGY1 Attending addendum: I saw and examined the patient at bedside myself. I reviewed the resident note above and agree wit h findings and management. Patient needed NST/BPP, Growth due to insulin dependent diabetic unable to be seen by MFM unit. NST/BPP 04/02 Patient will have growth u/s done outpatient. Patient to be discharged to PMD office today for further management of care and insulin G DM. Rita Martin MD Extremities - PN: Normal Abdomen - PN: Normal Lungs - PN: Normal Heart - PN: Normal General - PN: Normal FHR - Baseline A Provider: 150 Comments, ACOG Physical Exam: See triage comment IP Hx Assessment: The History has been Reviewed and is Current Vital Signs Provider: Reviewed; Within Normal Limits IP Chief Complaint: evaluation NICHD Variability Prov Fetus A: Moderate 6-25bpm NICHD Accel Fetus A IP Provider: [id number] FHR Category Provider Fetus A: Category I NICHD Decel Fetus A IP Provider: None
[2018-06-12 19:20] VITALS: BP 104/66; PULSE 78; RESP 18; TEMP 98; O2SAT 98
== END 2018-06-12 15:10 | disposition home or self-care (01) ==
LOC: H.EROB2 11:00
DX: O76 Abnormality in fetal heart rate and rhythm complicating labor and delivery (principal); Z3A.35 35 weeks gestation of pregnancy

== ENCOUNTER 2018-06-15 02:06 | Emergency (ER) | payer SELFPAY ==
[2018-06-15 02:37] VITALS: BMI 34.7
--- NOTE | 2018-06-15 10:22 | OBHP ---
Datetime: 06/15/2018 07:39 IP Adm Impression: , intrauterine IP Admit Plan: Discharge home Admit Comment, IP Provider: 37 YO with IUP at EGA 35.3 Wks by first trimester US and JEN Jun with h/o GDM, who presents to EDOB this morning with concern of no feeling FM. Patient today d enies any VB, Uterine contx, LOF, also denies VAZ, blurry vision, dizziness, CP, SOB, N/V, dysuria, fe sanam or other acute medical complaint at this time of encounter. ROS: unremarkable, except as per HPI provider: Dr Franklin. W f/u with MFM Dr Wm URIBEGYN: LMP 09/26/17. , patient reports x4 , h/o GDM in third and current . PMH: GDM FMH: denies SURG: Cholecystectomy ALL: NKA SOCHx: Denies ETOH/Tobacco/ drug use MEDS: PNV, Patient is on Insulin therapy (30 unit SC NPH AM, 14 units SC QHS) LABS: HIV neg 04/30, HBsAg neg, Rubella +/immune, RPR nonreactive, HbA1C 5.6, GTT 185 in december. NST/BPP /10 on 06/12 PE GEN: NAD HEENT: NCAT RESP: CTA b/l CV: RRR, S1 S2 normal ABD: Gravid EXT: LE no edema A/P 37 YO with IUP at EGA 35.3 Wks by first trimester US and JEN , who presented to EDOB with concern of -FM. -Observation L _ D -Monitor VS -D/C planning 7:49AM Patient reports +FM this morning, +FHR confirmed. Patient to D/C home, instructions given to f/u with provider on Saturday. Case discussed with attending Dr Neelam Gauthier MD PGY1 Addendum: I saw and examined patient at presentation. Pt observed at NICHOL[facility]. FHT category I. Patient report s active FM. After observation, patient discharged home with PTL precautions. Pt will F/U with offi ce this week. All patient questions answered. IP Hx Assessment: The History has been Reviewed and is Current EGA AdmitDate IP: 35.2 IP Chief Complaint: evaluation
[2018-06-15 12:43] VITALS: BP 104/78; PULSE 81; RESP 18; TEMP 98.6; O2SAT 99
== END 2018-06-15 08:30 | disposition home or self-care (01) ==
LOC: H.EROB2 02:06
DX: O36.8130 Decreased fetal movements, third trimester, not applicable or unspecified (principal); O24.419 Gestational diabetes mellitus in pregnancy, unspecified control; Z3A.35 35 weeks gestation of pregnancy

== ENCOUNTER 2018-07-04 12:48 | Emergency (ER) | payer MEDICAID, SELFPAY ==
[2018-07-01 16:33] VITALS: BMI 34.7
--- NOTE | 2018-07-04 13:32 | OBHP ---
Datetime: 07/04/2018 13:27 IP Adm Impression: Term, intrauterine ; No Active Labor; Intact Membranes IP Admit Plan: Discharge home Admit Comment, IP Provider: Mode [id number] IUP at 38+w GDMA on Metoform/Insulin..had CTX at home q45m. No SROM. no VB. +FM., She was supposed to [facility] for labor/delivery 0 baby has cardiac condition to be delivered at [facility] facility. EMS brought her [facility]. Prental care: [facility] PMH: GDMA2 PSH: denies NKA PSoH: denies smoking ETOH drugs A: Not in active labor PLAN: confirmed with MFM/PMD she is supposed to deliver at [facility] for peds/cardiac follow up...will d reesee her home. Stressed to pt if in labor to go to [facility]. Her is coming to pick her up. Shaniqua SHELDON - PN: Normal General - PN: Normal Presentation-Admit: Vertex Membranes, Provider: Intact Contraction Comments Provider: one Pool Provider: Negative EGA AdmitDate IP: 38.5 Vital Signs Provider: Reviewed; Within Normal Limits IP Chief Complaint: Uterine contractions FHR Category Provider Fetus A: Category I Dilatation, Provider: 3 Effacement, Provider: long Station, Provider:
--- NOTE | 2018-07-04 13:34 | OBDCSUM ---
Datetime: 07/04/2018 13:30 Discharged to, Provider: Home Follow up at, Provider: [facility] Disch Instr Activity: Normal activity Disch Instr Diet: Regular Discharge Time: 07/04/2018 13:31 Disch Referrals: None
[2018-07-04 17:43] VITALS: BP 121/75; PULSE 91; TEMP 98.2; O2SAT 99
== END 2018-07-04 13:43 | disposition home or self-care (01) ==
LOC: H.EROB2 12:48 → H.EROB 12:55 → H.EROB2 13:43
DX: O24.419 Gestational diabetes mellitus in pregnancy, unspecified control (principal); Z3A.38 38 weeks gestation of pregnancy; O26.93 Pregnancy related conditions, unspecified, third trimester; R10.2 Pelvic and perineal pain